=== PATIENT | male | born 1995 | race Caucasian/White ===

== ENCOUNTER 2021-12-18 22:00 | Emergency (ER) | payer SELFPAY ==
[2021-12-18 22:21] LABS: HEMOGLOBIN 16.6 gm/dl (14.0-17.5); RED BLOOD COUNT 5.45 M/UL (4.20-5.50); WHITE BLOOD COUNT 9.7 K/UL (4.5-11.0)
[2021-12-18 23:06] LABS: BUN/CREATININE RATIO 18 (0-10)
[2021-12-19] MEDS ORDERED: VIBRAMYCIN100 MG PO (00:39)
[2021-12-22 17:11] LABS: CHLAMYDIA TRACHOMATIS, NAA Negative (Negative); NEISSERIA GONORRHOEAE, NAA Negative (Negative)
== END 2021-12-19 00:55 | disposition home or self-care (01) ==
LOC: ER1 22:00
PROVIDERS: Physician Assistant; Student in an Organized Health Care Education/Training Program
DX: N45.3 Epididymo-orchitis (principal); F17.290 Nicotine dependence, other tobacco product, uncomplicated; Z90.89 Acquired absence of other organs; Z88.8 Allergy status to other drugs, medicaments and biological substances
CPT/HCPCS: 76870; 80053; 81001; 85025; 87086; 99284; J0696